=== PATIENT | female | born 2005 | race Hispanic/Latino ===

== ENCOUNTER 2024-06-07 21:32 | Day surgery (SDC) | payer BC, OTHER ==
[2024-06-07] MEDS ORDERED: hydrALAZINE 20 MG/ML VIAL SLOW IVP PRN (22:19)
[2024-06-07 23:18] LABS: Fetal Membranes Rupture No Membranes Rupture (No Rupture)
== END 2024-06-07 23:55 | disposition home or self-care (01) ==
LOC: CSHLD/OP 21:32
PROVIDERS: ATTEND Family Medicine
DX: O47.1 False labor at or after 37 completed weeks of gestation (principal); Z3A.39 39 weeks gestation of pregnancy; Z90.89 Acquired absence of other organs; Z79.899 Other long term (current) drug therapy
CPT/HCPCS: 84112; 99283